=== PATIENT | male | born 1965 | race Caucasian/White ===

== ENCOUNTER 2022-07-14 22:10 | Emergency (ER) | payer SELFPAY ==
[2022-07-15] MEDS ORDERED: KETOROLAC TROMETHAMINE 60 MG/2 ML VIAL IM ONE (00:44)
[2022-07-15] MEDS ORDERED: KETOROLAC TROMETHAMINE 60 MG/2 ML VIAL ONE (00:47)
== END 2022-07-15 01:09 | disposition home or self-care (01) ==
LOC: FER 22:10
PROC: 3E0233Z Introduction of Anti-inflammatory into Muscle, Percutaneous Approach (ICD-10-PCS; principal; 2022-07-15)
DX: M54.6 Pain in thoracic spine (principal)
CPT/HCPCS: 99284-25

== ENCOUNTER 2023-01-24 22:22 | Emergency (ER) | payer OTHER ==
[2023-01-24 22:33] VITALS: BP 154/95; PULSE 90; RESP 18; TEMP 99.3; BMI 27.2
[2023-01-24] MEDS ORDERED: predniSONE 20 MG TABLET (UD) PO ONE (22:53)
[2023-01-24] MEDS ORDERED: AZITHROMYCIN 250 MG TABLET PO ONE (22:53)
[2023-01-24] MEDS ORDERED: AZITHROMYCIN 500 MG TABLET ONE (22:55)
[2023-01-24] MEDS ORDERED: predniSONE 20 MG TABLET (UD) ONE (22:56)
[2023-01-24] MEDS ORDERED: DEXTROMETHORPHAN/PROMETHAZINE 15 MG/6.25 MG/5 ML SYRUP PO ONE (23:14)
[2023-01-24] MEDS ORDERED: guaiFENesin/D-METHORPHAN HB 10 ML UNIT-DOSE CUPS ONE (23:17)
== END 2023-01-24 23:24 | disposition home or self-care (01) ==
LOC: FER 22:22
DX: J45.909 Unspecified asthma, uncomplicated (principal); R05.9 Cough, unspecified; R50.9 Fever, unspecified
CPT/HCPCS: 99283-25